=== PATIENT | male | born 1965 | race Caucasian/White ===

== ENCOUNTER 2025-03-30 16:28 | Emergency (ER) | payer OTHER ==
[~2025-03-30] VITALS: Ht 172.7 cm; Wt 76.0 kg
--- OUTSIDE RECORDS SUMMARY | 2025-03-30 16:32 | XMS ---
PreManage Notification: LULI KUMARI Security Cake Decorator Events No recent Security Events currently on file CRITERIA MET - Group Notification - [facility] - 2 Visits in 30 Days CARE PROVIDERS -[facility] Dentist: Sinter Press Operator [facility] [place] PHONE: [phone] -Stuart- Dentist: Sinter Press Operator Current [facility] PHONE: [phone] EDDIE ROGERS Physician Quote Clerk [facility] [place]ENE PHONE: [phone] [facility]: [facility] Qualified [facility] <UNAVAIL> PHONE: [phone] Lashaun has no Care Guidelines for this patient. Rikki VISIT COUNT (12 MO.) [address] [id number] SHANNEN Alva TOTAL 7 NOTE: Visits indicate total known visits. ED/UCC VISIT TRACKING (12 MO.) 03/30/2025 16:29 [facility] [place] TYPE: Emergency COMPLAINT: - WOUND CARE LT INDEX FINGER 03/30/2025 13:35 [facility] [place] TYPE: Emergency DIAGNOSES: - Unspecified open wound of unspecified finger without damage to nail, initial encounter - Finger injury 03/09/2025 14:15 [facility] [place] TYPE: Emergency DIAGNOSES: - Gangrene, not elsewhere classified - INFECTION ON FINGER 11/15/2024 17:39 [facility] [place] TYPE: Emergency DIAGNOSES: - Cellulitis of right lower limb - Essential (primary) hypertension - Type 2 diabetes mellitus without complications - LEG INFECTION 11/08/2024 16:47 [facility] [place] TYPE: Emergency COMPLAINT: - HIGH BLOOD PRESSURE 09/16/2024 16:04 [facility] [place] TYPE: Emergency DIAGNOSES: - Bilateral inguinal hernia, without obstruction or gangrene, not specified as recurrent - HERNIA 04/08/2024 19:23 [facility] [place] TYPE: Emergency COMPLAINT: - POSSIBLE OD DIAGNOSES: - POSSIBLE OD INPATIENT VISIT TRACKING (12 MO.) No inpatient visits to display in this time frame [id number]
[2025-03-30] MEDS ORDERED: HYDROCHLOROTHIA25 MG PO (16:59)
[2025-03-30] MEDS ORDERED: AMLODIPINE BESY10 MG PO (16:59)
[2025-03-30] MEDS ORDERED: LISINOPRIL20 MG PO (16:59)
[2025-03-30] MEDS ORDERED: METFORMIN HCL500 MG PO (17:00)
[2025-03-30 17:28] LABS: BASOPHILS 0.9 % (0.2-1.2); EOSINOPHILS 0.9 % (0.8-7.0); HEMATOCRIT 38.8 % (40.1-51.0); MCH 28.9 PG (25.7-32.2); MCHC 33.5 g/dL (32.3-36.5); MCV 86.2 fL (79.0-92.2); MONOCYTES 6.7 % (5.3-12.2); NEUTROPHILS 77.3 % (34.0-67.9); PLATELET COUNT 262 K/uL (163-337)
[2025-03-30 17:43] LABS: ALBUMIN 4.1 g/dL (3.4-5.0); ALBUMIN/GLOBULIN RATIO 1.05 (1.1-2.4); ANION GAP 10.5 (7-21); BILIRUBIN, TOTAL 0.9 mg/dL (0.2-1.0); BUN/CREATININE RATIO 14.35 (6.0-28.6); CALCIUM 8.9 mg/dL (8.5-10.1); CREATININE, SERUM 1.95 mg/dL (0.70-1.30); POTASSIUM 3.5 mmol/L (3.5-5.1)
[2025-03-30] MEDS ORDERED: DIPHTH,PERTUSS(ACELL),TET VAC 0.5 ML SYRINGE IM ONE (19:30)
[2025-03-30] MEDS ORDERED: clindamycin HCL 300 MG CAP PO ONE (19:45)
[2025-03-30] MEDS ORDERED: CLEOCIN HCL300 MG PO (20:36)
[2025-03-30] MEDS ORDERED: LEVOFLOXACIN500 MG PO (20:36)
[2025-03-30] MEDS ORDERED: levoFLOXacin 500 MG TAB PO ONE (20:45)
[2025-03-30 21:05] VITALS: BP 193/114
== END 2025-03-30 21:19 | disposition other institution, planned readmission (95) ==
LOC: ED 16:28
PROVIDERS: Emergency Medicine
DX: S68.121A Partial traumatic metacarpophalangeal amputation of left index finger, initial encounter (principal); M86.9 Osteomyelitis, unspecified; I10 Essential (primary) hypertension; E11.9 Type 2 diabetes mellitus without complications; Z88.0 Allergy status to penicillin; Z79.84 Long term (current) use of oral hypoglycemic drugs; Z79.899 Other long term (current) drug therapy; W26.0XXA Contact with knife, initial encounter; Y92.143 Cell of prison as the place of occurrence of the external cause
CPT/HCPCS: 36415; 64450; 73140; 80053; 85025; 90471; 90715; 99284-25